=== PATIENT | male | born 1975 | race American Indian/Alaskan Native ===

== ENCOUNTER 2016-09-17 15:49 | Emergency (ER) | payer SELFPAY ==
[2016-09-17 17:08] VITALS: BP 149/98
--- NOTE | 2016-09-17 18:42 | Emergency Department Report ---
Chief Complaint: Dental/Oral Stated Complaint: DIZZY/SOB/TOOTH EXTRACTION W/BLEEDING Time Seen by Provider: 09/17/16 18:38 - HPI History of Present Illness: Patient here reports that he had to extraction today and he is been bleeding today. He said that he was feeling dizzy earlier but is not any dizziness now. Denies any nausea vomiting. Denies any difficulty breathing. He said the dentist placed him on amoxicillin and pain medication. He said that the bleeding has slowed down now. - ROS Review of Systems: All systems are negative unless stated in HPI above. - Exam Vital Signs: Vital Signs 09/17/16 17:05 Temperature 98.2 F Pulse Rate 92 H Respiratory 18 Rate Blood Pressure 149/98 O2 Sat by Pulse 98 Oximetry Physical Exam: General: This is a 41-year-old male well-nourished well-developed in no acute distress. Mouth: No active bleeding noted from extraction site. No pharyngeal erythema or exudate. No drooling noted. Uvula is midline. CV: S1, S2. Regular rate rhythm negative murmur Lungs:CTAB. MSE screening note: Focused history and physical exam performed. Due to findings the following was ordered:see mdm ED Disposition for MSE Condition: Stable
[2016-09-17 19:13] LABS: Hematocrit 39.2 % (35.5-45.6); Hemoglobin 12.8 gm/dl (11.8-15.2); Mean Corpuscular HGB Conc 33 % (32-34); Mean Corpuscular Hemoglobin 27 pg (28-32); Mean Corpuscular Volume 83 fl (84-94); Platelet Count 248 K/mm3 (140-440); Red Blood Count 4.73 M/mm3 (3.65-5.03); Red Cell Distribution Width 14.6 % (13.2-15.2); White Blood Count 12.1 K/mm3 (4.5-11.0)
== END 2016-09-18 01:16 | disposition left against medical advice (07) ==
LOC: ED 15:49
DX: R42 Dizziness and giddiness (principal); K91.840 Postprocedural hemorrhage of a digestive system organ or structure following a digestive system procedure; Z53.21 Procedure and treatment not carried out due to patient leaving prior to being seen by health care provider
CPT/HCPCS: 36415; 85027